=== PATIENT | male | born 1970 | race African-American/Black ===

== ENCOUNTER 2017-11-20 17:58 | Emergency (ER) | payer OTHER ==
[~2017-11-20] VITALS: Ht 172.7 cm; Wt 97.5 kg
[2017-11-20] MEDS ORDERED: OMEPRAZOLE20 M3 ORAL (18:25)
[2017-11-20] MEDS ORDERED: ATENOLOL50 MG ORAL ×3 (18:25→21:00)
[2017-11-20] MEDS ORDERED: COZAAR50 MG ORAL ×3 (18:25→21:00)
[2017-11-20 18:30] VITALS: BP 150/89
[2017-11-20] MEDS ORDERED: Aspirin Baby 81mg ORAL ONE (18:30)
[2017-11-20 19:16] LABS: ANION GAP 7 mmol/L (5-15); BASOPHILS % (AUTO) 1.3 % (0.0-2.0); BLOOD UREA NITROGEN 15 mg/dL (7-18); CALCIUM 8.9 MG/DL (8.5-10.1); CARBON DIOXIDE 28 MMOL/L (21-32); CHLORIDE 104 MMOL/L (98-107); EOSINOPHILS % (AUTO) 1.1 % (0.0-3.0); HEMATOCRIT 42.8 % (42.0-52.0); HEMOGLOBIN 14.7 G/DL (14.2-18.0); LYMPHOCYTES % (AUTO) 34.9 % (20.0-45.0); MEAN CORPUSCULAR VOLUME 86 FL (80-99); MONOCYTES % (AUTO) 8.7 % (1.0-10.0); PLATELET COUNT 291 K/UL (150-450); POTASSIUM 3.3 MMOL/L (3.5-5.1); RED BLOOD COUNT 4.96 M/UL (4.70-6.10); RED CELL DISTRIBUTION WIDTH 13.5 % (11.6-14.8); SODIUM 139 MMOL/L (136-145); WHITE BLOOD COUNT 7.9 K/UL (4.8-10.8)
[2017-11-20 19:30] LABS: ALANINE AMINOTRANSFERASE 38 U/L (12-78); ALBUMIN 3.7 G/DL (3.4-5.0); ALBUMIN/GLOBULIN RATIO 1.1 (1.0-2.7); ALKALINE PHOSPHATASE 62 U/L (46-116); ASPARTATE AMINO TRANSFERASE 22 U/L (15-37); BILIRUBIN,TOTAL 0.3 MG/DL (0.2-1.0); CREATINE KINASE 196 U/L (26-308)
[2017-11-20 19:35] VITALS: BP 145/88
--- NOTE | 2017-11-20 20:22 | Emergency Room Report ---
History of Present Illness General Chief Complaint: Dyspnea/Respdistress Source: Patient Present Illness HPI Patient states that he gets the same symptoms every time his blood pressure is elevated. He states he gets lightheaded. He also gets short of breath and anxious. He states that he ran out of both of his blood pressure medications. He states he ran out about 5 days ago. This is because he does not have medical insurance at this time. He does plan to restart his medical insurance. He denies recent illness. Denies fever or chills. Denies cough or congestion. He has no other complaints. Allergies: Coded Allergies: No Known Allergies (Unverified , 11/20/17) Patient History Past Medical History: see triage record, HTN, GERD Social History: Reports: smoking, alcohol use; Denies: drug use Reviewed Nursing Documentation: PMH: Agreed; PSxH: Agreed Nursing Documentation-PMH Past Medical History: No History, Except For Hx Hypertension: Yes Hx Gastrointestinal Problems: Yes - GERD Review of Systems All Other Systems: negative except mentioned in HPI Physical Exam Vital Signs Date Time Temp Pulse Resp B/P (MAP) Pulse Ox O2 Delivery O2 Flow Rate FiO2 11/20/17 18:01 98.2 81 16 154/92 96 Room Air 98.2 Sp02 EP Interpretation: reviewed, normal General Appearance: no apparent distress, alert, GCS 15, non-toxic Head: normocephalic, atraumatic Eyes: bilateral eye normal inspection, bilateral eye PERRL ENT: hearing grossly normal, normal pharynx, no angioedema, normal voice Neck: full range of motion, supple/symm/no masses Respiratory: chest non-tender, lungs clear, normal breath sounds, speaking full sentences Cardiovascular #1: regular rate, rhythm, no edema Gastrointestinal: normal bowel sounds, non tender, soft, non-distended, no guarding, no rebound Rectal: deferred Musculoskeletal: back normal, gait/station normal, normal range of motion, non- tender Neurologic: alert, oriented x3, responsive, motor strength/tone normal, sensory intact, speech normal Psychiatric: judgement/insight normal, memory normal, mood/affect normal, no suicidal/homicidal ideation Skin: normal color, no rash, warm/dry, well hydrated Medical Decision Making Diagnostic Impression: Primary Impression: Hypertension ER Course This patient has chronic hypertension and has multiple symptoms when he is on his hypertension medications. Given the length of symptoms, this workup is very reassuring with negative cardiac enzymes, normal EKG, and normal chest x- ray. The patient is low risk and his symptoms are atypical for acute coronary syndrome. I have very low suspicion for PE, aortic dissection or pneumothorax based on history/physical, laboratory and radiologic workup. I will refill the patient's hypotension medications. The patient was given close return precautions and followup instructions. Laboratory Tests Test 11/20/17 18:25 11/20/17 18:57 Urine Opiates Screen Negative (NEGATIVE) Urine Barbiturates Screen Negative (NEGATIVE) Phencyclidine (PCP) Screen Negative (NEGATIVE) Urine Amphetamines Screen Negative (NEGATIVE) Urine Benzodiazepines Screen Negative (NEGATIVE) Urine Cocaine Screen Negative (NEGATIVE) Urine Marijuana (THC) Screen Negative (NEGATIVE) White Blood Count 7.9 K/UL (4.8-10.8) Red Blood Count 4.96 M/UL (4.70-6.10) Hemoglobin 14.7 G/DL (14.2-18.0) Hematocrit 42.8 % (42.0-52.0) Mean Corpuscular Volume 86 FL (80-99) Mean Corpuscular Hemoglobin 29.7 PG (27.0-31.0) Mean Corpuscular Hemoglobin Concent 34.5 G/DL (32.0-36.0) Red Cell Distribution Width 13.5 % (11.6-14.8) Platelet Count 291 K/UL (150-450) Mean Platelet Volume 7.0 FL (6.5-10.1) Neutrophils (%) (Auto) 54.0 % (45.0-75.0) Lymphocytes (%) (Auto) 34.9 % (20.0-45.0) Monocytes (%) (Auto) 8.7 % (1.0-10.0) Eosinophils (%) (Auto) 1.1 % (0.0-3.0) Basophils (%) (Auto) 1.3 % (0.0-2.0) Sodium Level 139 MMOL/L (136-145) Potassium Level 3.3 MMOL/L (3.5-5.1) L Chloride Level 104 MMOL/L (98-107) Carbon Dioxide Level 28 MMOL/L (21-32) Anion Gap 7 mmol/L (5-15) Blood Urea Nitrogen 15 mg/dL (7-18) Creatinine 1.0 MG/DL (0.55-1.30) Estimate Glomerular Filtration Rate > 60 mL/min (>60) Glucose Level 109 MG/DL (74-106) H Calcium Level 8.9 MG/DL (8.5-10.1) Total Bilirubin 0.3 MG/DL (0.2-1.0) Aspartate Amino Transferase (AST) 22 U/L (15-37) Alanine Aminotransferase (ALT) 38 U/L (12-78) Alkaline Phosphatase 62 U/L (46-116) Total Creatine Kinase 196 U/L (26-308) Creatine Kinase MB 1.0 NG/ML (0.0-3.6) Creatine Kinase MB Relative Index 0.5 Troponin I 0.000 ng/mL (0.000-0.056) Total Protein 7.2 G/DL (6.4-8.2) Albumin 3.7 G/DL (3.4-5.0) Globulin 3.5 g/dL Albumin/Globulin Ratio 1.1 (1.0-2.7) EKG Diagnostic Results Rate: normal Rhythm: NSR ST Segments: no acute changes Rhythm Strip Diag. Results EP Interpretation: yes Rate: 60's Rhythm: NSR, no PVC's, no ectopy Chest X-Ray Diagnostic Results Chest X-Ray Diagnostic Results : Chest X-Ray Ordered: Yes # of Views/Limited/Complete: 1 View Indication: Shortness of Breath EP Interpretation: Yes Interpretation: no consolidation, no effusion, no pneumothorax, no acute cardiopulmonary disease Impression: No acute disease Electronically Signed by: Rut Last Vital Signs Date Time Temp Pulse Resp B/P (MAP) Pulse Ox O2 Delivery O2 Flow Rate FiO2 11/20/17 18:30 98.2 76 12 150/89 100 Room Air 98.2 Status: improved Disposition: HOME, SELF-CARE Condition: Improved Referrals: [facility]ERR[facility] (PCP) OLLIE MICHELE D.O. Nov 20, 2017 20:22
[2017-11-20] MEDS ORDERED: Losartan 25mg tab ORAL ONE (20:30)
[2017-11-20] MEDS ORDERED: Atenolol 25mg tab ONE (20:56)
[2017-11-20] MEDS ORDERED: Losartan 50mg tab ONE (20:56)
[2017-11-20 21:10] VITALS: BP 150/99
--- NOTE | 2017-11-21 11:38 | Diagnostic Imaging Report ---
Indication: Dyspnea Comparison: None A single view chest radiograph was obtained. Findings: Cardiomediastinal appearance is within normal limits for age. Pulmonary vascularity is appropriate. The diaphragmatic contour is smooth and costophrenic angles are sharp. No pleural effusions are identified. The bones are unremarkable. Impression: No acute findings
--- NOTE | 2017-11-22 17:43 | Cardiology Report ---
APPROVED REPORT EKG Measurement Heart [id number] Normal sinus rhythm Minimal voltage criteria for LVH, may be normal variant Anterior infarct, age undetermined Abnormal ECG
== END 2017-11-20 21:10 | disposition home or self-care (01) ==
LOC: EMR 18:42
DX: I10 Essential (primary) hypertension (principal); R42 Dizziness and giddiness; K21.9 Gastro-esophageal reflux disease without esophagitis; F17.200 Nicotine dependence, unspecified, uncomplicated; R06.02 Shortness of breath
CPT/HCPCS: 36415; 71045; 80053; 80307; 82550; 82553; 84484; 85025; 93005; 99283

== ENCOUNTER 2018-03-22 18:21 | Emergency (ER) | payer OTHER ==
[~2018-03-22] VITALS: Ht 172.7 cm; Wt 101.6 kg
[~2018-03-22 18:21] MED LIST: ATENOLOL50 MG ORAL; COZAAR50 MG ORAL; OMEPRAZOLE20 M3 ORAL
[2018-03-22 18:26] VITALS: BP 153/90
--- NOTE | 2018-03-22 18:30 | Emergency Room Report ---
History of Present Illness General Chief Complaint: Dizziness Source: Patient Present Illness HPI Pt. presents to the ED c/o dizziness x 2 days. Described as: episodic and rotational without visual/hearing changes or symptoms. pt. denies recent head trauma, reports went on some water slides recently. pt. denies CHUNG, unilateral weaknesses, slurred speech, or other neurological symptoms. pt. has hx of HTN. Pt. also reports severe itchy rash in the groin area x 4 days. pt. denies open sores,lesions, or swollen tender lymph nodes. pt. denies testicular pain or tenderness. denies fevers or chills. denies abdominal pain, Nausea or vomiting. Denies CP, palpitations or near syncope. pt. reports dizziness with standing up and occasionally when lying on his side. Allergies: Coded Allergies: No Known Allergies (Unverified , 11/20/17) Patient History Past Medical History: see triage record, HTN Past Surgical History: none Pertinent Family History: none Reviewed Nursing Documentation: PMH: Agreed; PSxH: Agreed Nursing Documentation-PMH Past Medical History: No History, Except For Hx Hypertension: Yes Hx Gastrointestinal Problems: Yes - GERD Review of Systems All Other Systems: negative except mentioned in HPI Physical Exam Vital Signs Date Time Temp Pulse Resp B/P (MAP) Pulse Ox O2 Delivery O2 Flow Rate FiO2 03/22/18 18:25 98.3 72 18 153/90 95 Room Air 98.2 Sp02 EP Interpretation: reviewed, normal General Appearance: no apparent distress, alert, GCS 15, non-toxic Head: normocephalic, atraumatic Eyes: bilateral eye normal inspection, bilateral eye PERRL ENT: hearing grossly normal, normal voice Neck: full range of motion Respiratory: lungs clear, normal breath sounds, speaking full sentences Cardiovascular #1: regular rate, rhythm Genitourinary: other - plaque like rash on the bilateral inguinal area into the thighs, also toward perinium. Musculoskeletal: back normal, gait/station normal - upon re-evaluation after meclizine pt. had unstable gait. , normal range of motion, non-tender Neurologic: alert, oriented x3, responsive, motor strength/tone normal, sensory intact, normal gait - upon re-evaluation after meclizine pt. had unstable gait. , speech normal, no pronator, abnormal gait - upon re-evaluation after meclizine pt. had unstable gait. , other - unable to illicit nystagmus, grossly normal Psychiatric: judgement/insight normal Skin: normal color, warm/dry, well hydrated, rash - hyperpigmented plaque on on the inner thighs/ groin and perinium area, no erythema, moderate excoriations , no d/c or open lesions. no vessicles. somewhat defined border. Medical Decision Making PA Attestation Dr. coleman is my supervising Physician whom patient management has been discussed with. Diagnostic Impression: Primary Impression: Rash and nonspecific skin eruption Additional Impression: Dizziness ER Course Pt. presents to the ED c/o dizziness x 2 days. Described as: episodic and rotational without visual/hearing changes or symptoms. pt. denies recent head trauma, reports went on some water slides recently. pt. denies CHUNG, unilateral weaknesses, slurred speech, or other neurological symptoms. pt. has hx of HTN. Pt. also reports severe itchy rash in the groin area x 4 days. pt. denies open sores,lesions, or swollen tender lymph nodes. pt. denies testicular pain or tenderness. denies fevers or chills. denies abdominal pain, Nausea or vomiting. Denies CP, palpitations or near syncope. pt. reports dizziness with standing up and occasionally when lying on his side. Ddx considered but are not limited to Mnire's, BPPV, labrinitis, cerebellar stroke, hypovolemia, cardiac cause. Vital signs: are WNL, pt. is afebrile H&PE are most consistent with : unable to illicit any nystagmus on PE, no focal neurological deficit. will do trial of meclizine and reassess. rash consistent with dermatitis vs tinea infection. ORDERS: -CT head no contrast- negative for ICH, EDEMA, or mass -BMP: unremarkable -CBC: unremarkable - Ortho Static VS: negative ED INTERVENTIONS: -Meclizine PO ---Re-evaluation 40 mins s/p oral meclizine --upon re-evaluation after meclizine pt. had unstable gait. decision to Do CT imaging at this time. additional 25mg Meclizine and IV reglan re-evaluation s/p additional medications CT results-- Pt. reports symptoms have resolved and is feeling much better. Pt. given strict ED return precautions, bedside who also verbalized understanding and agreement with treatment plan. DISCHARGE: At this time pt. is stable for d/c to home. Will provide printed patient care instructions, and any necessary prescriptions. Care plan and follow up instructions have been discussed with the patient prior to discharge. Labs Test 03/22/18 20:10 White Blood Count 6.8 K/UL (4.8-10.8) Red Blood Count 5.03 M/UL (4.70-6.10) Hemoglobin 14.8 G/DL (14.2-18.0) Hematocrit 43.0 % (42.0-52.0) Mean Corpuscular Volume 86 FL (80-99) Mean Corpuscular Hemoglobin 29.4 PG (27.0-31.0) Mean Corpuscular Hemoglobin Concent 34.4 G/DL (32.0-36.0) Red Cell Distribution Width 13.0 % (11.6-14.8) Platelet Count 298 K/UL (150-450) Mean Platelet Volume 7.1 FL (6.5-10.1) Neutrophils (%) (Auto) 49.3 % (45.0-75.0) Lymphocytes (%) (Auto) 37.8 % (20.0-45.0) Monocytes (%) (Auto) 9.9 % (1.0-10.0) Eosinophils (%) (Auto) 1.6 % (0.0-3.0) Basophils (%) (Auto) 1.4 % (0.0-2.0) Sodium Level 142 MMOL/L (136-145) Potassium Level 3.8 MMOL/L (3.5-5.1) Chloride Level 107 MMOL/L (98-107) Carbon Dioxide Level 25 MMOL/L (21-32) Anion Gap 11 mmol/L (5-15) Blood Urea Nitrogen 13 mg/dL (7-18) Creatinine 1.0 MG/DL (0.55-1.30) Estimat Glomerular Filtration Rate > 60 mL/min (>60) Glucose Level 122 MG/DL (74-106) Calcium Level 9.1 MG/DL (8.5-10.1) CT/MRI/US Diagnostic Results CT/MRI/US Diagnostic Results : Imaging Test Ordered: CT Head No contrast Impression No evidence of acute fracture, hemorrhage, or intracranial process Per official radiology report- Please see report for specific details. Last Vital Signs Date Time Temp Pulse Resp B/P (MAP) Pulse Ox O2 Delivery O2 Flow Rate FiO2 03/22/18 18:25 98.3 72 18 153/90 95 Room Air 98.2 Disposition: HOME, SELF-CARE Condition: Stable Scripts Hydrocortisone (Hydrocortisone Cream 2.5%) Y Cream.appl 1 APPLIC TP BID, #28.3 GM Prov: Sally Riley 03/22/18 Terbinafine (Lamisil At) 12 Gm Cream..g. 1 APPLIC TP TID, #24 GM Prov: Sally Riley 03/22/18 Meclizine Hcl* (VERTICALM*) 25 Mg Tablet 25 MG ORAL THREE TIMES A DAY, #15 TAB Prov: Sally Riley 03/22/18 Patient Instructions: Heat Rash, Rash, Flhy-so-Abfn, Vertigo Additional Instructions: Take medications as directed. Follow up with a Primary Care Provider in 3-5 days, even if your symptoms have resolved. --Please review list of primary care clinics, if you do not already have a primary care provider Return sooner to ED if new symptoms occur, or current symptoms become worse. Do not drink alcohol, drive, or operate heavy machinery while taking Meclizine/ Antivert as this may cause drowsiness. - Please note that this Emergency Department Report was dictated using yeturetail greeter technology software, occasionally this can lead to erroneous entry secondary to interpretation by the dictation equipment. Sally Riley Mar 22, 2018 18:30
[2018-03-22] MEDS ORDERED: Meclizine 25mg tab ONE (18:59)
[2018-03-22] MEDS ORDERED: Hydrocortisone 1% Oint 30gm TOPIC ONE ×2 (18:59→19:00)
[2018-03-22] MEDS: Meclizine 25mg tab ORAL PRN ×2 (19:00→20:14)
[2018-03-22] MEDS ORDERED: HYDROCORTISONE30 G2 TP (19:35)
[2018-03-22] MEDS ORDERED: VERTICALM25 MG ORAL (19:35)
[2018-03-22] MEDS ORDERED: LAMISIL AT24 GM TP (19:35)
[2018-03-22 19:50] VITALS: BP 145/83
[2018-03-22 19:55] VITALS: BP 148/93
[2018-03-22 19:57] VITALS: BP 145/83
[2018-03-22 20:01] VITALS: BP 153/99
[2018-03-22] MEDS ORDERED: Meclizine 25mg tab ORAL PRN (20:15)
[2018-03-22] MEDS ORDERED: Metoclopramide 10mg/2ml Inj IVP ONE (20:15)
[2018-03-22 20:36] LABS: ANION GAP 11 mmol/L (5-15); BLOOD UREA NITROGEN 13 mg/dL (7-18); CALCIUM 9.1 MG/DL (8.5-10.1); CARBON DIOXIDE 25 MMOL/L (21-32); CHLORIDE 107 MMOL/L (98-107); POTASSIUM 3.8 MMOL/L (3.5-5.1); SODIUM 142 MMOL/L (136-145)
[2018-03-22 20:39] LABS: BASOPHILS % (AUTO) 1.4 % (0.0-2.0); EOSINOPHILS % (AUTO) 1.6 % (0.0-3.0); HEMOGLOBIN 14.8 G/DL (14.2-18.0); LYMPHOCYTES % (AUTO) 37.8 % (20.0-45.0); MEAN CORPUSCULAR VOLUME 86 FL (80-99); MONOCYTES % (AUTO) 9.9 % (1.0-10.0); NEUTROPHILS % (AUTO) 49.3 % (45.0-75.0); PLATELET COUNT 298 K/UL (150-450); RED BLOOD COUNT 5.03 M/UL (4.70-6.10); WHITE BLOOD COUNT 6.8 K/UL (4.8-10.8)
[2018-03-22 21:11] VITALS: BP 153/99
--- NOTE | 2018-03-23 11:55 | Diagnostic Imaging Report ---
Indication: Headache, dizziness, vertigo, PAIN Technique: Continuous helical CT scanning of the head was performed without intravenous contrast material. Axial and coronal 5 mm sections were generated. Radiation dose was minimized using automated exposure control Dose: Total Dose Length Product - DLP 1435.[address] Dose Index - CTDIvol(s) 70.38 mGy. Comparison: Findings: The ventricular system is normal in size and configuration. There is no shift of midline structures. No abnormal extra-axial fluid collections are noted. There is no evidence of intracerebral bleeding. No other abnormal high or low density areas are noted within the brain. Impression: Normal CT scan of the head without contrast material. This agrees with the preliminary interpretation provided overnight by [facility] teleradiology service. The CT scanner at [facility] is accredited by the [employer] and the scans are performed using protocols designed to limit radiation exposure to as low as reasonably achievable to attain images of sufficient resolution adequate for diagnostic evaluation.
[2018-03-23] MEDS ORDERED: CYCLOBENZAPRINE10 MG ORAL (20:54)
[2018-03-23] MEDS ORDERED: IBUPROFEN800 MG ORAL (20:54)
[2018-03-23] MEDS ORDERED: TRANSDERM-SCOP1.5 MG TD (20:54)
== END 2018-03-22 21:13 | disposition home or self-care (01) ==
LOC: EMR 19:14
DX: R42 Dizziness and giddiness (principal); R21 Rash and other nonspecific skin eruption; I10 Essential (primary) hypertension; K21.9 Gastro-esophageal reflux disease without esophagitis
CPT/HCPCS: 36415; 70450; 80048; 85025; 96374; 99284; J2765

== ENCOUNTER 2018-03-23 18:04 | Emergency (ER) | payer OTHER ==
[~2018-03-23] VITALS: Ht 172.7 cm; Wt 99.8 kg
[~2018-03-23 18:04] MED LIST changes: +HYDROCORTISONE30 G2 TP; +LAMISIL AT24 GM TP; +VERTICALM25 MG ORAL
[2018-03-23 18:17] VITALS: BP 155/92
[2018-03-23] MEDS ORDERED: Ketorolac 60mg Inj IM ONE (18:45)
[2018-03-23] MEDS ORDERED: Cyclobenzaprine 10mg Tab ORAL ONE (18:45)
--- NOTE | 2018-03-23 20:38 | Emergency Room Report ---
History of Present Illness General Chief Complaint: Vertigo Source: Patient, Medical Record Present Illness HPI This patient states that he had a history of vertigo about a year ago. He states that 2 days ago he woke up with the same symptoms. He describes being off balance. He has had some nausea. He was seen here yesterday and given meclizine. He underwent basic laboratory blood work and a CT of his head which she was told is unremarkable. He states that since getting the meclizine yesterday here in the emergency Department he states he feels off and worse. He has no new symptoms. He denies vomiting. He denies headache or neck pain. He denies chest pain or shortness of breath. He states that he's been laying around for the past few days and has had aggravation of his chronic back pain. He has no other complaints. Allergies: Coded Allergies: No Known Allergies (Unverified , 03/23/18) Patient History Past Medical History: see triage record, HTN, GERD Social History: Denies: smoking, alcohol use, drug use Reviewed Nursing Documentation: PMH: Agreed; PSxH: Agreed Nursing Documentation-PMH Past Medical History: No History, Except For Hx Hypertension: Yes Hx Gastrointestinal Problems: Yes - GERD Review of Systems All Other Systems: negative except mentioned in HPI Physical Exam Vital Signs Date Time Temp Pulse Resp B/P (MAP) Pulse Ox O2 Delivery O2 Flow Rate FiO2 03/23/18 18:09 98.3 78 16 155/92 96 Room Air 98.2 Sp02 EP Interpretation: reviewed, normal General Appearance: no apparent distress, alert, GCS 15, non-toxic Head: normocephalic, atraumatic Eyes: bilateral eye normal inspection, bilateral eye PERRL ENT: hearing grossly normal, normal pharynx, no angioedema, normal voice Neck: full range of motion, supple/symm/no masses Respiratory: chest non-tender, lungs clear, normal breath sounds, no respiratory distress, no retraction, no accessory muscle use, speaking full sentences Cardiovascular #1: regular rate, rhythm, no edema Gastrointestinal: normal bowel sounds, non tender, soft, non-distended, no guarding, no rebound Rectal: deferred Musculoskeletal: back normal, gait/station normal, normal range of motion, non- tender Neurologic: alert, oriented x3, responsive, motor strength/tone normal, sensory intact, speech normal Psychiatric: judgement/insight normal, memory normal, mood/affect normal, no suicidal/homicidal ideation Skin: normal color, no rash, warm/dry, well hydrated Medical Decision Making Diagnostic Impression: Primary Impression: Vertigo ER Course This patient has a physical exam at presentation consistent with benign positional vertigo. Other considerations include labyrinthitis, Mnire's disease, central vertigo. The patient's symptoms are short and episodic and have been positional. There are no central neurologic findings on physical exam which is very reassuring that this is not a posterior circulation stroke. I did obtain an MRI of the brain which was also unremarkable. Laboratory workup are unremarkable from yesterday. I will change the patient to scopolamine since he was unable to tolerate the side effects of meclizine and have the patient follow up closely with the primary care physician. The patient was given return precautions and followup instructions. See electronic medical record for results from yesterday. CT/MRI/US Diagnostic Results CT/MRI/US Diagnostic Results : Imaging Test Ordered: MRI brain Impression Normal MRI brain. See official report. Last Vital Signs Date Time Temp Pulse Resp B/P (MAP) Pulse Ox O2 Delivery O2 Flow Rate FiO2 03/23/18 19:17 98.2 03/23/18 18:17 78 16 155/92 96 Room Air Status: improved Disposition: HOME, SELF-CARE Condition: Improved Referrals: [facility] (PCP) Patient Instructions: Vertigo Sheila Torres DO Mar 23, 2018 20:38
[2018-03-23] MEDS ORDERED: TransDerm Scop 1mg/72HR Patch TDERMAL ONE (20:45)
[2018-03-23] MEDS ORDERED: CYCLOBENZAPRINE10 MG ORAL (20:54)
[2018-03-23] MEDS ORDERED: TRANSDERM-SCOP1.5 MG TD (20:54)
[2018-03-23] MEDS ORDERED: IBUPROFEN800 MG ORAL (20:54)
[2018-03-23 21:12] VITALS: BP 155/92
--- NOTE | 2018-03-24 10:13 | Diagnostic Imaging Report ---
Indication: 47-year-old dizziness and vertigo. Technique: The head was imaged in a 1.5 Vidhi magnet. Sequences obtained include sagittal and axial T1 FLAIR, axial T2 fast spin echo with fat saturation, axial T2 FLAIR, diffusion and ADC map. Comparison: CT head 03/22/2018 Findings: The size, contour, and configuration of the sulci, ventricles, and basal cisterns appear normal. Mercado-white differentiation is normal. There is no restricted diffusion. There is no mass effect, midline shift, edema, or hemorrhage. There are no abnormal extra-axial or intra-axial fluid collections. The corpus callosum is unremarkable. The brainstem and cerebellum are unremarkable. The sella is unremarkable. Bone marrow signal within the visualized osseous structures appears age appropriate and unremarkable otherwise. Impression: Negative MRI brain without contrast.
== END 2018-03-23 21:12 | disposition home or self-care (01) ==
LOC: EMR 19:44
DX: R42 Dizziness and giddiness (principal); R11.0 Nausea; M54.5 Low back pain; F17.200 Nicotine dependence, unspecified, uncomplicated; K21.9 Gastro-esophageal reflux disease without esophagitis; I10 Essential (primary) hypertension; H53.8 Other visual disturbances
CPT/HCPCS: 70551; 96372; 99284

== ENCOUNTER 2018-03-26 19:34 | Emergency (ER) | payer OTHER ==
[~2018-03-26] VITALS: Ht 172.7 cm; Wt 102.1 kg
[~2018-03-26 19:34] MED LIST changes: +CYCLOBENZAPRINE10 MG ORAL; +IBUPROFEN800 MG ORAL; +TRANSDERM-SCOP1.5 MG TD
[2018-03-26 20:14] VITALS: BP 138/86
[2018-03-26] MEDS ORDERED: REGLAN10 MG ORAL (21:10)
[2018-03-26 21:12] VITALS: BP 138/76
[2018-03-26 21:20] VITALS: BP 138/86
--- NOTE | 2018-03-27 15:12 | Emergency Room Report ---
History of Present Illness General Chief Complaint: Dizziness Source: Patient Present Illness HPI 47-year-old male presents ED for evaluation. Patient states he's been feeling dizzy for the last week feels room spinning sensation. Worse with sudden head movement and position changes. Was seen here previously for similar presentation. Patient was prescribed initially meclizine states that it causes drowsiness. Patient was then prescribed scopolamine but states he is unable to find it at multiple pharmacies. Denies headache. Denies any blurry vision. Denies nausea or vomiting. All other aggravating relieving factors. Denies any other associated symptoms Allergies: Coded Allergies: No Known Allergies (Unverified , 03/23/18) Patient History Past Medical History: GERD Past Surgical History: none Pertinent Family History: none Social History: Denies: smoking, alcohol use, drug use Immunizations: UTD Reviewed Nursing Documentation: PMH: Agreed; PSxH: Agreed Nursing Documentation-PMH Hx Hypertension: Yes Hx Gastrointestinal Problems: Yes - GERD Review of Systems All Other Systems: negative except mentioned in HPI Physical Exam Vital Signs Date Time Temp Pulse Resp B/P (MAP) Pulse Ox O2 Delivery O2 Flow Rate FiO2 03/26/18 20:01 98.1 73 16 138/86 94 Room Air 98.1 Sp02 EP Interpretation: reviewed, normal General Appearance: no apparent distress, alert, GCS 15, non-toxic Head: normocephalic, atraumatic Eyes: bilateral eye normal inspection, bilateral eye PERRL ENT: hearing grossly normal, normal pharynx, no angioedema, normal voice Neck: full range of motion, supple/symm/no masses Respiratory: chest non-tender, lungs clear, normal breath sounds, speaking full sentences Cardiovascular #1: regular rate, rhythm, no edema Cardiovascular #2: 2+ carotid (R), 2+ carotid (L), 2+ radial (R), 2+ radial (L) , 2+ dorsalis pedis (R), 2+ dorsalis pedis (L) Gastrointestinal: normal bowel sounds, non tender, soft, non-distended, no guarding, no rebound Rectal: deferred Genitourinary: normal inspection, no CVA tenderness Musculoskeletal: back normal, gait/station normal, normal range of motion, non- tender Neurologic: alert, oriented x3, responsive, motor strength/tone normal, sensory intact, speech normal Psychiatric: judgement/insight normal, memory normal, mood/affect normal, no suicidal/homicidal ideation Reflexes: 3+ bicep (R), 3+ bicep (L), 3+ tricep (R), 3+ tricep (L), 3+ knee (R) , 3+ knee (L) Skin: normal color, no rash, warm/dry, well hydrated Lymphatic: no adenopathy Medical Decision Making Diagnostic Impression: Primary Impression: Vertigo ER Course Hospital Course 47-year-old male presents ED complaining of dizziness x1 week Differential diagnoses include: GA/unstable angina, SVT, A. fib, V. tach, CVA/ TIA, intracranial mass, vertigo Clinical course Patient placed on stretcher. on personnel monitor. After initial history, physical exam reveals middle-aged male in no acute distress. Bilateral TM unremarkable. There is no evidence of ataxia. Cranial nerves II through XII grossly intact. I reviewed EMR. Patient had been here twice this week for same vertigo. Patient had CT initially which was negative. On repeat visit patient had MRI which was also negative. Patient also had blood work which was unremarkable. I see no reason to repeat imaging or additional workup at this time. Patient is ambulating with steady gait. We will try Reglan instead for his vertigo. Recommended that patient follow up with his PMD. Consider neurology referral patient given reglan in ED Upon reassessment patient states his symptoms have improved. Clinical findings consistent with vertigo. Given lack of risk factors my suspicion for acute processes are low. I. I feel this is a highly complex case requiring extensive working including EKG/Rhythm strip, Xray/CT/US, Blood/urine lab work, repeat exams while in ED, and administration of strong opiates/narcotics for pain control, admission to hospital or close patient follow up. Diagnosis - vertigo stable and discharged to home with prescription for reglan. Followup with PMD. Return to ED if symptoms recur or worsen Last Vital Signs Date Time Temp Pulse Resp B/P (MAP) Pulse Ox O2 Delivery O2 Flow Rate FiO2 03/26/18 21:20 98.1 76 18 138/86 96 Room Air 98.1 Status: improved Disposition: HOME, SELF-CARE Condition: Stable Scripts Metoclopramide Hcl* (REGLAN*) 10 Mg Tablet 10 MG ORAL QID for 10 Days, TAB Prov: Virgilio Lopez MD 03/26/18 Patient Instructions: Vertigo, Prashanth Maneuver Self-Care Virgilio Lopez MD Mar 27, 2018 15:12
== END 2018-03-26 21:23 | disposition home or self-care (01) ==
LOC: EMR 20:35
DX: R42 Dizziness and giddiness (principal); I10 Essential (primary) hypertension; K21.9 Gastro-esophageal reflux disease without esophagitis
CPT/HCPCS: 99283

== ENCOUNTER 2019-02-22 23:59 | Emergency (ER) | payer OTHER ==
[~2019-02-22] VITALS: Ht 172.7 cm; Wt 97.5 kg
[~2019-02-22 23:59] MED LIST changes: +REGLAN10 MG ORAL
[2019-02-23 00:05] VITALS: BP 152/90
--- NOTE | 2019-02-23 00:05 | NUR ---
ED Nurse Note: Patient walked into ED c/o 10/ low back pain, after picking up a tub of water this morning. patient shows facial grimacing and is moaning. patient is alert and oriented x4, ambulatory with a steady gait, VSS
[2019-02-23] MEDS ORDERED: Ketorolac 60mg Inj IM ONE (00:15)
[2019-02-23] MEDS ORDERED: Acetaminophen 500mg (ES) tab ORAL ONE (00:15)
[2019-02-23] MEDS ORDERED: Dexamethasone 4mg/ml vial IM ONE (00:15)
[2019-02-23] MEDS ORDERED: oxyCODONE HCL/Acetaminophen 5/325mg ORAL ONE (00:15)
[2019-02-23] MEDS ORDERED: NAPROXEN250 MG ORAL (00:22)
[2019-02-23] MEDS ORDERED: ROBAXIN-750750 MG PO (00:22)
[2019-02-23] MEDS ORDERED: NORCO 5-325 TA1 EACH ORAL (00:22)
--- NOTE | 2019-02-23 00:22 | Emergency Room Report ---
History of Present Illness General Chief Complaint: Lower Back Pain or Injury Source: Patient Present Illness HPI 48-year-old male history of hypertension presents with lower back pain left side , sharp in nature aggravated with movement alleviated with rest, severity is moderate, patient states the episode started earlier in the morning when he was lifting a big gallon of water patient states this happened in the past, no bowel bladder incontinence, no urinary retention, no perianal numbness, no focal weakness. Patient presents for evaluation, Allergies: Coded Allergies: No Known Allergies (Unverified , 03/23/18) Patient History Past Medical History: see triage record Reviewed Nursing Documentation: PMH: Agreed; PSxH: Agreed Nursing Documentation-PMH Past Medical History: No History, Except For Hx Hypertension: Yes Hx Gastrointestinal Problems: Yes - GERD Review of Systems All Other Systems: negative except mentioned in HPI Physical Exam Vital Signs Date Time Temp Pulse Resp B/P (MAP) Pulse Ox O2 Delivery O2 Flow Rate FiO2 02/23/19 00:04 98.4 72 18 152/90 (110) 98 Room Air Sp02 EP Interpretation: reviewed, normal General Appearance: well appearing, no apparent distress, alert Head: normocephalic, atraumatic Eyes: bilateral eye PERRL, bilateral eye EOMI ENT: uvula midline, moist mucus membranes Neck: supple, thyroid normal, supple/symm/no masses Respiratory: lungs clear, no respiratory distress, no retraction, no accessory muscle use Cardiovascular #1: normal peripheral pulses, regular rate, rhythm, no edema, no gallop, no murmur Gastrointestinal: non tender, soft, no guarding, no rebound Musculoskeletal: other - There is tenderness to palpation left lower back, on the muscle, no midline tenderness, no step-offs, straight leg raise positive, 5 out of 5 strength bilateral lower extremity's, at the knees, ankles, reflexes 2 + patellar, and ankles, sensation grossly intact Neurologic: alert, oriented x3 Psychiatric: mood/affect normal Skin: no rash, warm/dry Medical Decision Making Diagnostic Impression: Primary Impression: Low back pain ER Course The patient presents with acute onset of back pain after lifting a large gallon of water. Clinically this patient can be ruled out for serious pathology given there is a completely normal neurological exam, no history of IV drug use, and no history of bowel or bladder incontinence, no perianal numbness/tingling, no constipation or urinary retention. Once the patient's pain was adequately controlled, the patient was able to ambulate and be discharged in stable condition with anticipatory guidance provided. Patient given pain management, disposition home with return precautions, a cures report was ran Cane provided, disposition home with return precautions Last Vital Signs Date Time Temp Pulse Resp B/P (MAP) Pulse Ox O2 Delivery O2 Flow Rate FiO2 02/23/19 00:04 98.4 72 18 152/90 (110) 98 Room Air Status: improved Disposition: HOME, SELF-CARE Condition: Stable Scripts Methocarbamol* (ROBAXIN-750*) 750 Mg Tablet 750 MG PO QID, #28 TAB 0 Refills Prov: Aftab Abdul MD 02/23/19 Hydrocodone Bit/Acetaminophen 5-325* (NORCO 5-325*) 1 Each Tablet 1 TAB ORAL Q6H PRN for For Pain, #12 TAB 0 Refills Prov: Aftab Abdul MD 02/23/19 Naproxen* (NAPROSYN*) 250 Mg Tablet 250 MG ORAL BID PRN for For Pain, #20 TAB 0 Refills Prov: Aftab Abdul MD 02/23/19 Referrals: [facility]P) [facility] Departure Forms: Return to Work Return to Work Date: Feb 26, 2019 Patient Instructions: Lumbosacral Strain, Back Pain, Adult Additional Instructions: The patient was provided with discharge instructions, notified to follow-up with a primary care doctor and or specialist in the next 24-48 hours, and to return to the ED if they have worsening of their symptoms. Please note that this report is being documented using Goshi technology. This can lead to erroneous entry secondary to incorrect interpretation by the dictating instrument. Aftab Abdul MD Feb 23, 2019 00:22
[2019-02-23 01:00] VITALS: BP 138/79
--- NOTE | 2019-02-23 01:00 | NUR ---
ER DISCHARGE NOTE: Patient is cleared to be discharged per ERMD, pt is aox4, on room air, with stable vital signs. pt was given dc and prescription instructions, pt was able to verbalize understanding, pt id band removed without complications. pt is able to ambulate with a cane. pt took all belongings.
== END 2019-02-23 01:00 | disposition home or self-care (01) ==
LOC: EMR 02-23 00:12
DX: M54.5 Low back pain (principal); I10 Essential (primary) hypertension; K21.9 Gastro-esophageal reflux disease without esophagitis
CPT/HCPCS: 96372; 99283; J1100

== ENCOUNTER 2019-04-12 15:11 | Emergency (ER) | payer OTHER ==
[~2019-04-12] VITALS: Ht 172.7 cm; Wt 97.1 kg
[~2019-04-12 15:11] MED LIST changes: +NAPROXEN250 MG ORAL; +NORCO 5-325 TA1 EACH ORAL; +ROBAXIN-750750 MG PO
[2019-04-12 15:20] VITALS: BP 170/112
[2019-04-12] MEDS ORDERED: Dexamethasone 4mg/ml vial IVP ONE (15:30)
[2019-04-12] MEDS ORDERED: Dexamethasone 20mg/5ml IVP ONE (15:30)
[2019-04-12] MEDS: Albuterol ud Inhalation HHN SCH ×3 (15:32→15:55)
[2019-04-12 15:46] LABS: BASOPHILS % (AUTO) 1.3 % (0.0-2.0); EOSINOPHILS % (AUTO) 4.7 % (0.0-3.0); HEMATOCRIT 47.1 % (42.0-52.0); LYMPHOCYTES % (AUTO) 36.5 % (20.0-45.0); MEAN CORPUSCULAR VOLUME 87 FL (80-99); MONOCYTES % (AUTO) 5.4 % (1.0-10.0); NEUTROPHILS % (AUTO) 52.1 % (45.0-75.0); PLATELET COUNT 347 K/UL (150-450); RED BLOOD COUNT 5.43 M/UL (4.70-6.10); RED CELL DISTRIBUTION WIDTH 12.6 % (11.6-14.8); WHITE BLOOD COUNT 9.1 K/UL (4.8-10.8)
[2019-04-12 15:58] LABS: ANION GAP 11 mmol/L (5-15); BLOOD UREA NITROGEN 11 mg/dL (7-18); CALCIUM 9.5 MG/DL (8.5-10.1); CARBON DIOXIDE 26 MMOL/L (21-32); CHLORIDE 104 MMOL/L (98-107); POTASSIUM 3.3 MMOL/L (3.5-5.1); SODIUM 141 MMOL/L (136-145)
[2019-04-12 15:59] LABS: INR 0.9 (0.9-1.1)
[2019-04-12 16:08] LABS: ALANINE AMINOTRANSFERASE 24 U/L (12-78); ALKALINE PHOSPHATASE 70 U/L (46-116); ASPARTATE AMINO TRANSFERASE 18 U/L (15-37); BILIRUBIN,TOTAL 0.3 MG/DL (0.2-1.0); CKMB 0.6 NG/ML (0.0-3.6); CREATINE KINASE 173 U/L (26-308)
--- NOTE | 2019-04-12 16:09 | Diagnostic Imaging Report ---
Indication: Chest pain Comparison: 11/20/2017 A single view chest radiograph was obtained. Findings: Cardiomediastinal appearance is within normal limits for age. The lungs are clear. Pulmonary vascularity is appropriate. The diaphragmatic contour is smooth and costophrenic angles are sharp. No pleural effusions are identified. The bones are unremarkable. Impression: No acute findings
[2019-04-12 16:29] LABS: APPEARANCE,URINE CLEAR; BILIRUBIN, URINE NEGATIVE (NEGATIVE); COLOR,URINE PALE YELLOW; GLUCOSE, URINE (UA) NEGATIVE (NEGATIVE); KETONES,URINE NEGATIVE (NEGATIVE); LEUKOCYTE ESTERASE ,URINE NEGATIVE (NEGATIVE); NITRITE,URINE NEGATIVE (NEGATIVE); PH,URINE 6 (4.5-8.0); PROTEIN,URINE NEGATIVE (NEGATIVE); UROBILINOGEN,URINE NORMAL MG/DL (0.0-1.0)
[2019-04-12] MEDS: Albuterol/Ipratropium 3ml neb HHN SCH ×4 (16:43→17:30)
--- NOTE | 2019-04-12 17:27 | Emergency Room Report ---
History of Present Illness General Chief Complaint: Dyspnea/Respdistress Source: Patient Present Illness HPI 48-year-old male with history of hypertension currently controlled with atenolol and heavy tobacco smoke here complaining of 2 weeks of wheezing and shortness of breath. Patient reports that he was cleaning his bathroom with Clorox 2 weeks ago and started feeling short of breath. Denies any chest pain, cough and congestion, fever and chills, palpitation. Patient is brought into the ER actively wheezing however in no apparent distress no respiratory distress noted pulse ox is within normal limits. Patient speaking in full sentences. No anaphylaxis noted. Denies abdominal pain, nausea vomiting, urinary symptoms. Patient had elevated blood pressure upon arrival however denies dizziness and headache, chest pain. Reports that he has not yet taken his atenolol today. Also requesting a refill on his atenolol. Reports that he has been a heavy tobacco smoker for years and he smokes about 10 cigarettes/ day. Denies alcohol intake and other drug use. Denies vaping. Allergies: Coded Allergies: No Known Allergies (Unverified , 03/23/18) Patient History Past Medical History: see triage record Past Surgical History: unable to obtain Pertinent Family History: none Social History: Reports: smoking - daily tobacco smoker Immunizations: UTD Reviewed Nursing Documentation: PMH: Agreed; PSxH: Agreed Nursing Documentation-PMH Past Medical History: No History, Except For Hx Hypertension: Yes Hx Gastrointestinal Problems: Yes - GERD Review of Systems All Other Systems: negative except mentioned in HPI Physical Exam Vital Signs Date Time Temp Pulse Resp B/P (MAP) Pulse Ox O2 Delivery O2 Flow Rate FiO2 04/12/19 15:13 98.2 88 17 170/112 (131) Room Air 04/12/19 15:20 96 04/12/19 15:25 21 Sp02 EP Interpretation: reviewed, normal General Appearance: no apparent distress, alert, GCS 15, non-toxic Head: normocephalic, atraumatic Eyes: bilateral eye normal inspection, bilateral eye PERRL ENT: hearing grossly normal, normal pharynx, no angioedema, normal voice Neck: full range of motion, no carotid bruits, supple/symm/no masses Respiratory: chest non-tender, no rhonchi, no respiratory distress, no retraction, no accessory muscle use, wheezing - diffuse Cardiovascular #1: regular rate, rhythm, no edema, no murmur Gastrointestinal: normal bowel sounds, non tender, soft, non-distended, no guarding, no rebound Genitourinary: normal inspection, no CVA tenderness Musculoskeletal: back normal, gait/station normal, normal range of motion, non- tender, no calf tenderness Neurologic: normal inspection, alert, oriented x3, responsive, crayon painter III-XII nml as tested Psychiatric: judgement/insight normal, memory normal, mood/affect normal, no suicidal/homicidal ideation Skin: no rash Lymphatic: normal inspection, no adenopathy Medical Decision Making PA Attestation Diagnosis and treatment plans were reviewed and discussed with my supervising physician Dr. Abdul Diagnostic Impression: Primary Impression: Dyspnea Additional Impressions: COPD (chronic obstructive pulmonary disease) HTN (hypertension) ER Course 48-year-old male with history of hypertension currently controlled with atenolol and heavy tobacco smoke here complaining of 2 weeks of wheezing and shortness of breath. Patient reports that he was cleaning his bathroom with Clorox 2 weeks ago and started feeling short of breath. Denies any chest pain, cough and congestion, fever and chills, palpitation. Patient is brought into the ER actively wheezing however in no apparent distress no respiratory distress noted pulse ox is within normal limits. Patient speaking in full sentences. No anaphylaxis noted. Denies abdominal pain, nausea vomiting, urinary symptoms. Patient had elevated blood pressure upon arrival however denies dizziness and headache, chest pain. Reports that he has not yet taken his atenolol today. Also requesting a refill on his atenolol. Reports that he has been a heavy tobacco smoker for years and he smokes about 10 cigarettes/ day. Denies alcohol intake and other drug use. Denies vaping. Ddx considered but are not limited to: GA, Angina, COPD, GERD, hypertension Vital signs: are WNL, pt. is afebrile H&PE are most consistent with COPD, hypertension ORDERS: EKG, Chest XR, cardiac labs(troponin, CBC, CMP, BMP albuterol, prednisone, atenolol ED INTERVENTIONS: Albuterol breathing treatment and dexamethasone DISCHARGE: At this time pt. is stable for d/c to home. Will provide printed patient care instructions, and any necessary prescriptions. Care plan and follow up instructions have been discussed with the patient prior to discharge. After treating wheezing and shortness of breath patient blood pressure was normalized. Patient stable at time of discharge advised him to reduce tobacco smoking follow-up with a primary care provider if worsening symptoms return to emergency room. EKG Diagnostic Results Rate: normal Rhythm: NSR ST Segments: no acute changes Other Impression No acute ST changes noted Q waves noted in anterior leads and inferior leads most likely old finding. Chest X-Ray Diagnostic Results Chest X-Ray Diagnostic Results : Chest X-Ray Ordered: Yes # of Views/Limited/Complete: 1 View Indication: Shortness of Breath EP Interpretation: Yes RENU Xray: Interpretation reviewed, by supervising MD, and agrees with findings. Interpretation: no consolidation, no effusion, no pneumothorax Impression: No acute disease Electronically Signed by: Seth Mccartney PA-C Last Vital Signs Date Time Temp Pulse Resp B/P (MAP) Pulse Ox O2 Delivery O2 Flow Rate FiO2 04/12/19 17:09 93 20 100 04/12/19 15:32 Room Air 21 04/12/19 15:20 98.2 170/112 Disposition: HOME, SELF-CARE Condition: Stable Scripts Prednisone* (PREDNISONE*) 20 Mg Tablet 20 MG ORAL BID for 5 Days, #10 TAB 0 Refills Prov: Seth Avalos 04/12/19 Albuterol Sulfate (VENTOLIN HFA) 18 Gm Hfa.aer.ad 2 PUFFS INH EVERY 6 HOURS, #18 GM 0 Refills Prov: Seth Avalos 04/12/19 Atenolol* (TENORMIN*) 50 Mg Tablet 50 MG ORAL DAILY, #30 TAB Prov: Seth Avalos 04/12/19 Ref[facility] ([facility]P) Patient Instructions: Chronic Obstructive Pulmonary Disease Exacerbation, Hypertension, [id number], Shortness of Breath, [id number] Additional Instructions: Take medication as directed follow-up with your primary care provider avoid smoking worsening symptoms return to the emergency room Seth Avalos Apr 12, 2019 17:27
[2019-04-12] MEDS ORDERED: PREDNISONE20 MG ORAL ×2 (17:29→17:39)
[2019-04-12] MEDS ORDERED: ATENOLOL50 MG ORAL ×2 (17:29→17:39)
[2019-04-12] MEDS ORDERED: VENTOLIN HFA18 GM INH ×2 (17:29→17:39)
[2019-04-12 17:40] VITALS: BP 145/96
== END 2019-04-12 17:41 | disposition home or self-care (01) ==
LOC: EMR 15:30
DX: J44.9 Chronic obstructive pulmonary disease, unspecified (principal); I10 Essential (primary) hypertension; K21.9 Gastro-esophageal reflux disease without esophagitis; F17.210 Nicotine dependence, cigarettes, uncomplicated
CPT/HCPCS: 36415; 36600; 71045; 80053; 80307; 81003; 82550; 82553; 82803; 83880; 84484; 85025; 85610; 85730; 86850; 86900; 86901; 93005; 94640; 94664; 96374; J1100; Z7502; 99284; J7620

== ENCOUNTER 2019-05-18 08:16 | Emergency (ER) | payer OTHER ==
[~2019-05-18] VITALS: Ht 172.7 cm; Wt 99.8 kg
[~2019-05-18 08:16] MED LIST changes: +PREDNISONE20 MG ORAL; +VENTOLIN HFA18 GM INH
[2019-05-18 08:24] VITALS: BP 166/97
--- NOTE | 2019-05-18 08:46 | NUR ---
ED Nurse Note: Pt came in due to sinus congestion and wheezing x 2 days. No fever. AAO x4, ambulatory with no respiratory distress and speaks in full sentences.
[2019-05-18] MEDS: Ipratropium 0.02% Inh Soln 2.5ml UD HHN SCH ×2 (08:50→09:10)
[2019-05-18] MEDS: Albuterol ud Inhalation HHN SCH ×2 (08:50→09:10)
--- NOTE | 2019-05-18 08:54 | Emergency Room Report ---
History of Present Illness General Chief Complaint: Upper Respiratory Illness Source: Patient Present Illness HPI 48yo M with history of hypertension, COPD, comes to the ER with cough with yellow sputum production for the past 2 3 days, as well as chest congestion, and shortness of breath. No hemoptysis, chest heaviness, pressure, sharp pain. Also denies leg pain, syncope, abdominal pain, vomiting. He reports he ran out of his albuterol and has not tried any other medications for his symptoms. He also denies fever, body aches, but does report wheezing. Allergies: Coded Allergies: No Known Allergies (Unverified , 03/23/18) Patient History Past Medical History: see triage record Reviewed Nursing Documentation: PMH: Agreed; PSxH: Agreed Nursing Documentation-PMH Hx Hypertension: Yes Hx Gastrointestinal Problems: Yes - GERD Review of Systems All Other Systems: negative except mentioned in HPI Physical Exam Vital Signs Date Time Temp Pulse Resp B/P (MAP) Pulse Ox O2 Delivery O2 Flow Rate FiO2 05/18/19 08:24 98.6 94 18 166/97 95 Room Air Sp02 EP Interpretation: reviewed, normal General Appearance: alert, non-toxic, mild distress Head: normocephalic Eyes: bilateral eye normal inspection, bilateral eye PERRL, bilateral eye EOMI ENT: normal ENT inspection, hearing grossly normal, normal pharynx, no angioedema, normal voice, moist mucus membranes Neck: normal inspection, full range of motion, supple, supple/symm/no masses Respiratory: chest non-tender, decreased breath sounds - Only at bases bilaterally and symmetrically, accessory muscle use, wheezing - Expiratory at bilateral bases, expiration, chest symmetrical, palpation of chest normal Cardiovascular #1: normal peripheral pulses, regular rate, rhythm, no edema, no gallop, no JVD, no murmur, no rub Cardiovascular #2: 2+ radial (R), 2+ radial (L), 2+ dorsalis pedis (R), 2+ dorsalis pedis (L) Gastrointestinal: normal inspection, non tender, soft, no mass, no guarding, no rebound Rectal: deferred Genitourinary: normal inspection, no CVA tenderness Musculoskeletal: back normal, gait/station normal, normal range of motion, non- tender, no calf tenderness, Carlos's Sign negative Neurologic: alert, responsive, parlor maid III-XII nml as tested, motor strength/tone normal, sensory intact, speech normal Psychiatric: judgement/insight normal, memory normal, mood/affect normal Lymphatic: no adenopathy Procedures Critical Care Time Critical Care Time 30 minutes of critical care time excluding all procedures due to need for emergent evaluation and serial continuous nebulizer treatments for respiratory distress. Medical Decision Making Diagnostic Impression: Primary Impression: COPD exacerbation ER Course Patient had an unremarkable EKG, labs, chest x-ray, but was wheezing, was given multiple serial nebulizer treatments, had much improvement, and will be discharged with prescription for prednisone, serial inhaler treatments, PMD follow-up. EKG Diagnostic Results EKG Time: 08:38 EP Interpretation: No STEMI Rate: normal Rhythm: NSR ST Segments: no acute changes ASA given to the pt in ED: No Chest X-Ray Diagnostic Results Chest X-Ray Diagnostic Results : Chest X-Ray Ordered: Yes # of Views/Limited/Complete: 1 View Indication: Shortness of Breath EP Interpretation: Yes Interpretation: no consolidation, no effusion, no pneumothorax, no acute cardiopulmonary disease Impression: No acute disease Electronically Signed by: Nahomi Solis MD Reevaluation Time: 10:26 Last Vital Signs Date Time Temp Pulse Resp B/P (MAP) Pulse Ox O2 Delivery O2 Flow Rate FiO2 05/18/19 08:34 89 17 Room Air 05/18/19 08:24 98.6 166/97 (120) 95 Status: improved Disposition: HOME, SELF-CARE Condition: Stable NAHOMI SOLIS M.D May 18, 2019 08:54
[2019-05-18 09:31] LABS: ANION GAP 10 mmol/L (5-15); BLOOD UREA NITROGEN 10 mg/dL (7-18); CARBON DIOXIDE 27 MMOL/L (21-32); CHLORIDE 104 MMOL/L (98-107); POTASSIUM 3.6 MMOL/L (3.5-5.1); SODIUM 141 MMOL/L (136-145)
[2019-05-18 09:59] LABS: ALANINE AMINOTRANSFERASE 25 U/L (12-78); ALBUMIN 3.4 G/DL (3.4-5.0); ALBUMIN/GLOBULIN RATIO 0.9 (1.0-2.7); ALKALINE PHOSPHATASE 73 U/L (46-116); ASPARTATE AMINO TRANSFERASE 16 U/L (15-37); BILIRUBIN,TOTAL 0.4 MG/DL (0.2-1.0); CKMB 0.9 NG/ML (0.0-3.6); CREATINE KINASE 101 U/L (26-308)
[2019-05-18 10:01] LABS: BASOPHILS % (AUTO) 0.9 % (0.0-2.0); EOSINOPHILS % (AUTO) 3.1 % (0.0-3.0); HEMATOCRIT 45.6 % (42.0-52.0); HEMOGLOBIN 15.6 G/DL (14.2-18.0); LYMPHOCYTES % (AUTO) 21.3 % (20.0-45.0); MEAN CORPUSCULAR VOLUME 84 FL (80-99); MONOCYTES % (AUTO) 6.6 % (1.0-10.0); PLATELET COUNT 370 K/UL (150-450); RED BLOOD COUNT 5.45 M/UL (4.70-6.10); RED CELL DISTRIBUTION WIDTH 13.6 % (11.6-14.8); WHITE BLOOD COUNT 10.5 K/UL (4.8-10.8)
[2019-05-18] MEDS ORDERED: PREDNISONE20 MG ORAL (10:28)
[2019-05-18] MEDS ORDERED: ALBUTEROL SULF8.5 GM INH (10:28)
--- NOTE | 2019-05-18 10:38 | Diagnostic Imaging Report ---
Indication: Reason For Exam: COUGH Technique: Single AP view of the chest. Comparison: Chest radiograph dated 04/12/2019 Findings: The cardiomediastinal silhouette is unchanged. No new airspace consolidation. No pneumothorax. No pleural fluid. No acute osseous abnormality. IMPRESSION: No radiographic evidence of acute cardiopulmonary process.
[2019-05-18 10:44] VITALS: BP 154/80
--- NOTE | 2019-05-18 10:44 | NUR ---
ER DISCHARGE NOTE: Patient is cleared to be discharged per ERMD, pt is aox4, on room air, with stable vital signs. pt was given dc and prescription instructions, pt was able to verbalize understanding, pt id band and iv site removed without complications. pt is able to ambulate with steady gait. pt took all belongings and left with his .
--- NOTE | 2019-05-23 13:55 | Cardiology Report ---
APPROVED REPORT EKG Measurement Heart [id number] Normal sinus rhythm Inferior infarct, age undetermined Cannot rule out Anterior infarct, age undetermined Abnormal ECG
== END 2019-05-18 10:44 | disposition home or self-care (01) ==
LOC: EMR 09:10
DX: J44.1 Chronic obstructive pulmonary disease with (acute) exacerbation (principal); I10 Essential (primary) hypertension; K21.9 Gastro-esophageal reflux disease without esophagitis
CPT/HCPCS: 36415; 71045; 80053; 82550; 82553; 83880; 84484; 85025; 93005; 94640; J7512; Z7502; 99284; 99291

== ENCOUNTER 2019-06-19 08:07 | Emergency (ER) | payer OTHER ==
[~2019-06-19] VITALS: Ht 172.7 cm; Wt 108.9 kg
[~2019-06-19 08:07] MED LIST changes: +ALBUTEROL SULF8.5 GM INH
[2019-06-19 08:20] VITALS: BP 150/95
[2019-06-19] MEDS ORDERED: Ketorolac 60mg Inj IM ONE (08:30)
[2019-06-19] MEDS ORDERED: Cyclobenzaprine 10mg Tab ORAL ONE (08:30)
--- NOTE | 2019-06-19 09:12 | Diagnostic Imaging Report ---
EXAM: XR Lumbar Spine, 3 Views CLINICAL HISTORY: PAIN TECHNIQUE: Frontal, lateral, and lateral coned-down views of the lumbar spine. COMPARISON: No relevant prior studies available. FINDINGS: Vertebrae: There are 5 tce-tto-ncevnka lumbar vertebral segments. The lumbar vertebral body heights are preserved. Normal alignment. Subtle cortical irregularity within the midportion of the L2 vertebral body on lateral view. Disc spaces: No significant narrowing. Soft tissues: Unremarkable. Vasculature: Atherosclerotic calcifications within the abdominal aorta. IMPRESSION: Subtle cortical irregularity within the midportion of the L2 vertebral body on lateral view. This is nonspecific and cannot exclude a very early compression fracture deformity with minimal to no height loss. If further characterization is desired, MRI is more sensitive for evaluation of nondisplaced lumbar fractures.
[2019-06-19 09:21] LABS: APPEARANCE,URINE CLEAR; BILIRUBIN, URINE NEGATIVE (NEGATIVE); COLOR,URINE PALE YELLOW; GLUCOSE, URINE (UA) NEGATIVE (NEGATIVE); KETONES,URINE NEGATIVE (NEGATIVE); LEUKOCYTE ESTERASE ,URINE NEGATIVE (NEGATIVE); NITRITE,URINE NEGATIVE (NEGATIVE); PH,URINE 6 (4.5-8.0); PROTEIN,URINE NEGATIVE (NEGATIVE); UROBILINOGEN,URINE NORMAL MG/DL (0.0-1.0)
[2019-06-19] MEDS ORDERED: Lidocaine 1% MPF 10mg/ml 5ml IM ONE (09:30)
--- NOTE | 2019-06-19 10:06 | Emergency Room Report ---
History of Present Illness General Chief Complaint: Lower Back Pain or Injury Source: Patient Present Illness HPI She states that about a week ago he was helping assist a 300 pound woman up from a chair at [employer]. He states he felt a pull in his low back at that time. He states that over the past week he has had ongoing pain in his right low back that is worse in certain positions. He denies weakness. He denies tingling or numbness. He denies loss of bowel or bladder control. He denies midline pain. He states the pain is primarily with movement and will be sharp. He denies fever or chills. He denies nausea or vomiting. He is requesting a refill of his albuterol inhaler as he is out. He denies respiratory illness at this time. He has no other complaints. Allergies: Coded Allergies: No Known Allergies (Unverified , 03/23/18) Patient History Past Medical History: HTN, COPD, GERD Social History: Reports: smoking; Denies: alcohol use, drug use Reviewed Nursing Documentation: PMH: Agreed; PSxH: Agreed Nursing Documentation-PMH Past Medical History: No History, Except For Hx Hypertension: Yes Hx COPD: Yes Hx Gastrointestinal Problems: Yes - GERD Review of Systems All Other Systems: negative except mentioned in HPI Physical Exam Vital Signs Date Time Temp Pulse Resp B/P (MAP) Pulse Ox O2 Delivery O2 Flow Rate FiO2 06/19/19 08:14 98.2 97 17 151/97 (115) 97 Room Air Sp02 EP Interpretation: reviewed, normal General Appearance: no apparent distress, alert, GCS 15, non-toxic Head: normocephalic, atraumatic Eyes: bilateral eye normal inspection, bilateral eye PERRL ENT: hearing grossly normal, normal pharynx, no angioedema, normal voice Neck: full range of motion, supple/symm/no masses Respiratory: chest non-tender, lungs clear, normal breath sounds, no respiratory distress, no retraction, no accessory muscle use, speaking full sentences Cardiovascular #1: regular rate, rhythm, no edema Gastrointestinal: normal bowel sounds, non tender, soft, non-distended, no guarding, no rebound Rectal: deferred Musculoskeletal: normal inspection, normal range of motion, gait/station normal , tender - TTP over the R. paraspinal m. of the Low back (L5, sacral) Neurologic: alert, motor strength/tone normal, oriented x3, sensory intact, responsive, speech normal Psychiatric: judgement/insight normal, memory normal, mood/affect normal, no suicidal/homicidal ideation Skin: no rash, normal color Medical Decision Making Diagnostic Impression: Primary Impression: Low back strain ER Course This patient has a clinical presentation consistent with mechanical back pain. There are no red flags on physical exam. The patient denies any concerning features such as trauma, fevers, night sweats, history of malignancy, pain worse at night, IV drug abuse, urinary/fecal incontinence or retention, focal weakness or change in sensation, or refractory pain. Given these pertinent negatives in the history and physical exam an emergent cause of the back pain such as epidural abscess, metastasis to bone, cauda equina syndrome, and fracture is less likely. I also doubt emergent cardiovascular cause of back pain such as aortic dissection a ruptured abdominal aortic aneurysm given patient with equal pulses in all 4 extremities with no diastolic murmur or pulsatile abdominal mass. Lumbar spine x-ray did note a subtle cortical irregularity within the midportion of L2 vertebrae on the lateral view. This was nonspecific. There is no pain at this location, so I did not further image this region. I did give the patient a copy of the read of the x-ray and instructed him to follow-up with his primary care physician and that if he continues to have pain he should get an MRI by his primary care physician. The patient was counseled that, though unlikely, the possibility of an emergent cause of back pain may still be present and that the patient should return immediately if symptoms persist or worsen. The symptoms are reproducible with movement. Patient had a benign evaluation and neurologic examination. No emergency etiology was identified. Laboratory Tests Test 06/19/19 09:03 Urine Color Pale yellow Urine Appearance Clear Urine pH 6 (4.5-8.0) Urine Specific [place]ublim[place] 1.015 (1.005-1.035) Urine Protein Negative (NEGATIVE) Urine Glucose (UA) Negative (NEGATIVE) Urine Ketones Negative (NEGATIVE) Urine Blood 2+ (NEGATIVE) H Urine Nitrite Negative (NEGATIVE) Urine Bilirubin Negative (NEGATIVE) Urine Urobilinogen Normal MG/DL (0.0-1.0) Urine Leukocyte Esterase Negative (NEGATIVE) Urine RBC 0-2 /HPF (0 - 0) H Urine WBC 0 /HPF (0 - 0) Urine Squamous Epithelial Cells Occasional /LPF Urine Bacteria Occasional /HPF (NONE) Urine Opiates Screen Negative (NEGATIVE) Urine Barbiturates Screen Negative (NEGATIVE) Phencyclidine (PCP) Screen Negative (NEGATIVE) Urine Amphetamines Screen Negative (NEGATIVE) Urine Benzodiazepines Screen Negative (NEGATIVE) Urine Cocaine Screen Negative (NEGATIVE) Urine Marijuana (THC) Screen Negative (NEGATIVE) Other X-Ray Diagnostic Results Other X-Ray Diagnostic Results : X-Ray ordered: L-spine xray # of Views/Limited Vs Complete: Complete Indication: Pain EP Interpretation: No Interpretation: other - Subtle cortical irregularity within the midportion of the L2 vertebral. See official report in the EMR. Impression: Other - See above. Electronically Signed by: Sheila Torres DO Last Vital Signs Date Time Temp Pulse Resp B/P (MAP) Pulse Ox O2 Delivery O2 Flow Rate FiO2 06/19/19 09:05 98.2 06/19/19 08:20 88 18 150/95 99 Room Air Status: improved Disposition: HOME, SELF-CARE Condition: Improved Referrals: [facility] ([facility]P) Patient Instructions: Low Back Sprain With [facility] Sheila Torres DO Jun 19, 2019 10:06
[2019-06-19] MEDS ORDERED: ALBUTEROL SULF8.5 GM INH (10:08)
[2019-06-19] MEDS ORDERED: TRAMADOL HCL50 MG ORAL ×2 (10:08→10:10)
[2019-06-19] MEDS ORDERED: CYCLOBENZAPRINE10 MG ORAL (10:08)
[2019-06-19] MEDS ORDERED: LIDODERM700 M1 TOPIC (10:08)
[2019-06-19 10:20] VITALS: BP 145/82
== END 2019-06-19 10:20 | disposition home or self-care (01) ==
LOC: EMR 08:30
DX: S39.012A Strain of muscle, fascia and tendon of lower back, initial encounter (principal); X50.0XXA Overexertion from strenuous movement or load, initial encounter; Y92.9 Unspecified place or not applicable; J44.9 Chronic obstructive pulmonary disease, unspecified; K21.9 Gastro-esophageal reflux disease without esophagitis; F17.200 Nicotine dependence, unspecified, uncomplicated
CPT/HCPCS: 72020; 80307; 81003; 96372; Z7502; 99283

== ENCOUNTER 2019-09-12 12:34 | Emergency (ER) | payer OTHER ==
[~2019-09-12] VITALS: Ht 172.7 cm; Wt 103.0 kg
[~2019-09-12 12:34] MED LIST changes: +LIDODERM700 M1 TOPIC; +TRAMADOL HCL50 MG ORAL
--- NOTE | 2019-09-12 13:02 | NUR ---
ED Nurse Note: Patient walked in to ER from home c/o uncontrolable itching of his anus, penis, and groin area x 1 month. pt reports using the restroom to urinate 6-7 x a day
[2019-09-12 13:03] VITALS: BP 129/84
--- NOTE | 2019-09-12 13:12 | NUR ---
ED Nurse Note: Pt ambulated to restroom and urinated. urine specimen obtained and sent to lab
--- NOTE | 2019-09-12 13:15 | NUR ---
ED Nurse Note: pt placed in gown
[2019-09-12 14:25] VITALS: BP 131/88
--- NOTE | 2019-09-12 14:26 | Emergency Room Report ---
History of Present Illness General Chief Complaint: Male Urogenital Problems Source: Patient Present Illness HPI 49 YO Male presents to the emergency department complaining of 8/10 in severity itching on testicles and anus area x 1 month. Pt. denies fevers, chills or swollen tender lymph nodes. Denies lesions/rashes elsewhere on the body. Denies new medications or body washes or creams. Denies swelling of the lips, tongue , throat or airway. Denies wheezing, or shortness of breath. Denies recent travel , recent illness or ill contacts. denies oral lesions, or sloughing of the skin. Pt. also with painful sores on the penis x 1 week. has been applying Neosporin with no relief. He denies testicular pain or tenderness, testicular swelling, dysuria, penile discharge, swollen tender lymph nodes, fevers, chills , abdominal pain or joint pain. He reports having an episode of similar sores in the past which resolved on their own after 2 weeks. 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 Allergies: Coded Allergies: No Known Allergies (Unverified , 03/23/18) Patient History Past Medical History: see triage record Past Surgical History: none Pertinent Family History: none Reviewed Nursing Documentation: PMH: Agreed; PSxH: Agreed Nursing Documentation-PMH Past Medical History: No Stated History Hx Hypertension: Yes Hx COPD: Yes Hx Gastrointestinal Problems: Yes - GERD Review of Systems All Other Systems: negative except mentioned in HPI Physical Exam Vital Signs Date Time Temp Pulse Resp B/P (MAP) Pulse Ox O2 Delivery O2 Flow Rate FiO2 09/12/19 12:55 98.2 110 20 129/84 (99) 98 Room Air Sp02 EP Interpretation: reviewed, normal General Appearance: no apparent distress, alert, GCS 15, non-toxic Head: normocephalic, atraumatic Eyes: bilateral eye normal inspection, bilateral eye PERRL ENT: hearing grossly normal, normal voice Neck: full range of motion Respiratory: lungs clear, normal breath sounds, no wheezing, speaking full sentences Cardiovascular #1: regular rate, rhythm Gastrointestinal: non tender, soft Genitourinary: normal inspection, scrotum normal, other - macerated red rash diffuse on the bilateral inguinal areas and extending to the rectum. No blisters. There are 3 grouped painful/sensitive ulcers on the left side of the penile shaft. No testicular tenderness or swelling. Musculoskeletal: back normal, normal range of motion, gait/station normal, non- tender Neurologic: alert, motor strength/tone normal, oriented x3, sensory intact, responsive, speech normal Psychiatric: judgement/insight normal Skin: rash - macerated red rash diffuse on the bilateral inguinal areas and extending to the rectum. No blisters. There are 3 grouped painful/sensitive ulcers on the left side of the penile shaft. No testicular tenderness or swelling. Lymphatic: no adenopathy Medical Decision Making PA Attestation Dr. Love is my supervising Physician whom patient management has been discussed with. Diagnostic Impression: Primary Impression: Rash and other nonspecific skin eruption Additional Impression: Herpes dermatitis ER Course 49 YO Male presents to the emergency department complaining of 8/10 in severity itching on testicles and anus area x 1 month. Pt. denies fevers, chills or swollen tender lymph nodes. Denies lesions/rashes elsewhere on the body. Denies new medications or body washes or creams. Denies swelling of the lips, tongue , throat or airway. Denies wheezing, or shortness of breath. Denies recent travel , recent illness or ill contacts. denies oral lesions, or sloughing of the skin. Pt. also with painful sores on the penis x 1 week. has been applying Neosporin with no relief. He denies testicular pain or tenderness, testicular swelling, dysuria, penile discharge, swollen tender lymph nodes, fevers, chills , abdominal pain or joint pain. He reports having an episode of similar sores in the past which resolved on their own after 2 weeks. 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 Ddx considered but are not limited to cellulitis, scabies, shingles, varicella, dermatitis, urticaria, eczema, tinea, viral exanthem, SJS, STI Vital signs: are WNL, pt. is afebrile H&PE are most consistent with Jock itch and herpetic lesions. ORDERS: none required at this time, the diagnosis is clinical ED INTERVENTIONS: None required at this time. DISCHARGE: At this time pt. is stable for d/c to home. Will provide printed patient care instructions, and any necessary prescriptions. Care plan and follow up instructions have been discussed with the patient prior to discharge. Last Vital Signs Date Time Temp Pulse Resp B/P (MAP) Pulse Ox O2 Delivery O2 Flow Rate FiO2 2/17/20 13:03 98.2 110 20 129/84 98 Room Air Status: improved Disposition: HOME, SELF-CARE Condition: Stable Scripts Acyclovir* (ACYCLOVIR*) 400 Mg Tablet 400 MG ORAL FIVE TIMES A DAY for 7 Days, #35 TAB Prov: Sally Riley 09/12/19 Clotrimazole* (LOTRIMIN*) 15 Gm Cream..g. 1 APPLIC TOPIC TWICE A DAY, #15 GM 3 Refills Prov: Sally Riley 09/12/19 Referrals: [facility]ERR[facility] (PCP) Patient Instructions: Genital Herpes, Jock Itch, [id number] Additional Instructions: Take medications as directed. Follow up with a Primary Care Provider in 3-5 days for DERMATOLOGY REFERRAL , even if your symptoms have resolved. Return sooner to ED if new symptoms occur, or current symptoms become worse. - Please note that this Emergency Department Report was dictated using [employer] cost [employer] technology software, occasionally this can lead to erroneous entry secondary to interpretation by the dictation equipment. Sally Riley Sep 12, 2019 14:26
[2019-09-12 14:28] VITALS: BP 138/85
[2019-09-12] MEDS ORDERED: CLOTRIMAZOLE15 GM TOPIC (14:28)
[2019-09-12] MEDS ORDERED: ACYCLOVIR400 MG ORAL (14:28)
--- NOTE | 2019-09-12 14:29 | NUR ---
ER DISCHARGE NOTE: Patient is cleared to be discharged per ERMD, pt is aox4, on room air, with stable vital signs. pt was given dc instructions, pt was able to verbalize understanding, pt id band removed. pt is able to ambulate with steady gait. pt took all belongings. pt accompanied by spouse
== END 2019-09-12 14:28 | disposition home or self-care (01) ==
LOC: EMR 14:02
DX: R21 Rash and other nonspecific skin eruption (principal); B00.1 Herpesviral vesicular dermatitis; J44.9 Chronic obstructive pulmonary disease, unspecified; I10 Essential (primary) hypertension; K21.9 Gastro-esophageal reflux disease without esophagitis
CPT/HCPCS: 99282